=== PATIENT | female | born 1990 | race Caucasian/White ===

== ENCOUNTER 2018-05-26 09:57 | Emergency (ER) | payer MEDICAID ==
[~2018-05-26] VITALS: Ht 162.6 cm; Wt 62.0 kg
[2018-05-26 10:17] VITALS: BP 113/72
[2018-05-26 10:50] LABS: BASOPHILS # (AUTO) 0.04 x10^3/uL (0-0.1); BASOPHILS % (AUTO) 0 % (0-1); EOSINOPHILS # (AUTO) 0.21 x10^3/uL (0-0.4); EOSINOPHILS % (AUTO) 2 % (1-7); LYMPHOCYTES # (AUTO) 1.25 x10^3/uL (1-3.4); LYMPHOCYTES % (AUTO) 13 % (22-44); MD NO; MEAN CORPUSCULAR HEMOGLOBIN 31.5 pg (27.0-34.8); MEAN CORPUSCULAR HGB CONC 33.2 g/dL (32.4-35.8); MEAN CORPUSCULAR VOLUME 94.9 fL (80-100); MEAN PLATELET VOLUME 7.3 fL (7.4-10.4); MONOCYTES # (AUTO) 0.38 x10^3/uL (0.2-0.8); MONOCYTES % (AUTO) 4 % (2-9); NEUTROPHILS # (AUTO) 7.53 x10^3/uL (1.8-6.8); NEUTROPHILS % (AUTO) 80 % (42-75); PLATELET COUNT 399 x10^3/uL (130-400); RED BLOOD COUNT 4.48 x10^6/uL (3.82-5.3); RED CELL DISTRIBUTION WIDTH 15.3 % (9.6-15.2)
[2018-05-26 10:58] LABS: ALANINE AMINOTRANSFERASE 18 U/L (12-78); ALBUMIN 3.6 g/dL (3.4-5.0); ANION GAP 10 mmol/L (5-15); CALCIUM 9.1 mg/dL (8.5-10.1); CHLORIDE 110 mmol/L (98-107); CREATININE 0.84 mg/dL (0.55-1.02)
[2018-05-26 11:00] LABS: ALKALINE PHOSPHATASE 78 U/L (45-117); BILIRUBIN,TOTAL 0.8 mg/dL (0.2-1.0); TOTAL PROTEIN 7.2 g/dL (6.4-8.2)
--- NOTE | 2018-05-26 11:05 | NUR ---
Lori ling in [facility] - 05/26/18 at 1120 by DEEP UNABLE TO AMBULATE DUE TO PAIN WILL REMEDICATE
--- NOTE | 2018-05-26 11:31 | NUR ---
PT CO PAIN AT IV SITE FLUSHES WELL NO INFILTRATION NOTED
[2018-05-26 11:45] LABS: AMPHETAMINE SCREEN, URINE Negative (Negative); BARBITURATE SCREEN, URINE Negative (Negative); BENZODIAZEPINE SCREEN, URINE Negative (Negative); CANNABINOID SCREEN, URINE Positive (Negative); COCAINE SCREEN, URINE Negative (Negative); CULTURE INDICATED? YES; METHADONE SCREEN, URINE Negative (Negative); MICROSCOPIC INDICATED; OPIATE SCREEN, URINE Negative (Negative)
== END 2018-05-26 12:50 | disposition home or self-care (01) ==
LOC: ED 12:30
DX: R56.9 Unspecified convulsions (principal); F17.200 Nicotine dependence, unspecified, uncomplicated; J45.909 Unspecified asthma, uncomplicated
CPT/HCPCS: 36415; 80053; 80307; 81001; 85025; 87086; 93005; 99284

== ENCOUNTER 2019-07-13 12:56 | Emergency (ER) | payer MEDICAID ==
[~2019-07-13] VITALS: Ht 162.6 cm; Wt 59.0 kg
--- NOTE | 2019-07-13 13:04 | NUR ---
[facility] DELIV[facility] CALLED FOR HE[facility]ONES.
--- NOTE | 2019-07-13 13:05 | NUR ---
PT TO ROOM PER [facility]. EMS REPORTS THAT PT HAD A WITNESSED TONIC/CLONIC SEIZURE LASTING AT LEAST 1 MINUTE. PT HAD LOSS OF BLADDER CONTROL DURING SEIZURE. PT WAS IN POSTICAL STATE AND WAS A/OX2. [facility] REPORTS THAT PT HAS HAD THESE SEIZURES BEFORE, BUT AFTER HER AND WAS TOLD IT COULD BE RELATED TO DEHYDRATION. PER PATIENT MOTHER, THERE HAS NEVER BEEN A DIAGNOSIS OF SEIZURE FROM ANY MEDICAL PERSON, AND PT DOES NOT HAVE A PRIMARY MD. MOM AT BEDSIDE, AND INFORMS MEDICAL STAFF THAT PATIENT GETS LIKE THIS IF SHE HASN'T HAD ENOUGH SLEEP. PT REPORTS BEING [place] THE [place] UNTIL 0400, AND THEN WAS HANGING AT HER FRIENDS HOUSE SMOKING WEED. PT IS AWAKE A/OX4, DROWSY AND C/O HEADACHE. MD AT BEDSIDE TO DISCUSS POC. OB RN AT BEDSIDE TO CHECK FHT AND WILL MONITOR THE OB ASPECT OF THIS PATIENTS CARE WHILE IN THE OB.
[2019-07-13 13:35] LABS: BASOPHILS # (AUTO) 0.03 x10^3/uL (0-0.1); BASOPHILS % (AUTO) 0 % (0-1); EOSINOPHILS # (AUTO) 0.29 x10^3/uL (0-0.4); EOSINOPHILS % (AUTO) 3 % (1-7); LYMPHOCYTES # (AUTO) 1.73 x10^3/uL (1-3.4); LYMPHOCYTES % (AUTO) 18 % (22-44); MD NO; MEAN CORPUSCULAR HEMOGLOBIN 30.6 pg (27.0-34.8); MEAN CORPUSCULAR HGB CONC 32.7 g/dL (32.4-35.8); MEAN CORPUSCULAR VOLUME 93.7 fL (80-100); MEAN PLATELET VOLUME 6.8 fL (7.4-10.4); MONOCYTES # (AUTO) 0.54 x10^3/uL (0.2-0.8); MONOCYTES % (AUTO) 6 % (2-9); NEUTROPHILS # (AUTO) 7.17 x10^3/uL (1.8-6.8); NEUTROPHILS % (AUTO) 73 % (42-75); PLATELET COUNT 311 x10^3/uL (130-400); RED BLOOD COUNT 3.51 x10^6/uL (3.82-5.3); RED CELL DISTRIBUTION WIDTH 17.9 % (9.6-15.2)
--- NOTE | 2019-07-13 13:36 | NUR ---
PT TO CT PER CART.
--- NOTE | 2019-07-13 13:44 | NUR ---
RN GETS PERMISSION TO GIVE PATIENT WATER, SHE IS TOLD WE NEED TO COLLECT URINE. PT REMAINS DROWSY. DROWSY BEHAVIOUU UNKNOWN IF REMAING POSTICTAL OR DUE TO LACK OF SLEEP. PT WAKES EASILY AND IS A/OX4 WHEN AWAKE, BUT DRIFTS TO SLEEP READILY.
[2019-07-13 13:47] LABS: ALBUMIN 2.5 g/dL (3.4-5.0); ANION GAP 6 mmol/L (5-15); CHLORIDE 110 mmol/L (98-107)
--- NOTE | 2019-07-13 14:30 | NUR ---
PT SLEEPING. NO SEIZURE ACTIVITY NOTED. AWAITING PATIENT TO GET URINE FOR TESTING. FAMILY REMAINS AT BEDSIDE.
[2019-07-13] MEDS ORDERED: ACETAMINOPHEN 500 MG TABLET PO ONE (15:00)
[2019-07-13] MEDS ORDERED: ACETAMINOPHEN 500 MG TABLET ONE (15:13)
[2019-07-13 15:24] LABS: AMPHETAMINE SCREEN, URINE Negative (Negative); BARBITURATE SCREEN, URINE Negative (Negative); BENZODIAZEPINE SCREEN, URINE Negative (Negative); CANNABINOID SCREEN, URINE Positive (Negative); COCAINE SCREEN, URINE Negative (Negative); METHADONE SCREEN, URINE Negative (Negative); OPIATE SCREEN, URINE Negative (Negative)
--- NOTE | 2019-07-13 15:42 | NUR ---
PT RESTING IN BED. REQUESTING TEST RESULTS TO DETERMINE WHAT THE PLAN IS. MD NOTIFIED. FAMILY REMAINS AT BEDSIDE.
[2019-07-13 15:57] LABS: MICROSCOPIC INDICATED
[2019-07-13 16:00] LABS: CULTURE INDICATED? YES
--- NOTE | 2019-07-13 16:31 | NUR ---
DISCHARGE INSTRUCTIONS GIVEN TO PATIENT. PT VERBALIZES UNDERSTANDING OF ALL INSTRUCTIONS AND FOLLOW UP. PT AMBULATES OUT OF ED WITH MOTHER PER PEDIS. PT IS INSTRUCTED TO GO TO LABOR AND DELIVERY FOR FULL ASSESSMENT. PT VERBALIZES UNDERSTANDING.
[2019-07-13 16:40] VITALS: BP 116/78
== END 2019-07-13 17:05 | disposition home or self-care (01) ==
LOC: ED 14:47
DX: O26.892 Other specified pregnancy related conditions, second trimester (principal); R56.9 Unspecified convulsions; R94.31 Abnormal electrocardiogram [ECG] [EKG]; R51 Headache; J45.909 Unspecified asthma, uncomplicated; Z3A.22 22 weeks gestation of pregnancy
CPT/HCPCS: 36415; 70450; 80048; 80307; 81001; 82040; 85025; 87086; 93005; 99285